=== PATIENT | female | born 1930 | race Hispanic/Latino ===

== ENCOUNTER → 2017-10-17 | Outpatient (CLI) | payer MEDICARE | END | disposition home or self-care (01) | LOC: RAH 15:14 | PROVIDERS: ATTEND Internal Medicine Cardiovascular Disease | DX: I48.2 Chronic atrial fibrillation (principal); I10 Essential (primary) hypertension; R60.0 Localized edema | CPT/HCPCS: 93970 ==

== ENCOUNTER → 2017-12-03 | Outpatient (CLI) | payer MEDICARE | END | disposition home or self-care (01) | LOC: SHCH 08:23 | PROVIDERS: ATTEND Internal Medicine Cardiovascular Disease | DX: M79.604 Pain in right leg (principal); R60.9 Edema, unspecified; I10 Essential (primary) hypertension; E78.5 Hyperlipidemia, unspecified; E03.9 Hypothyroidism, unspecified; I25.10 Atherosclerotic heart disease of native coronary artery without angina pectoris | CPT/HCPCS: 93970 ==

== ENCOUNTER → 2018-09-08 | Outpatient (CLI) | payer MEDICARE | END | disposition home or self-care (01) | LOC: RAH 10:54 | PROVIDERS: ATTEND Family Medicine | DX: R42 Dizziness and giddiness (principal); I65.22 Occlusion and stenosis of left carotid artery | CPT/HCPCS: 93880 ==

== ENCOUNTER 2019-12-07 21:11 | Inpatient (IN) | payer MEDICARE ==
[~2019-12-07] VITALS: Ht 152.4 cm; Wt 55.0 kg
[2019-12-07] MEDS ORDERED: CLINDAMYCIN 600 MG/D5% WATER 50 ML IV ONE (21:39)
[2019-12-07] MEDS ORDERED: SODIUM CHLORIDE 0.9% 1000ML 1,000 ML IV ONE (21:40)
[2019-12-07 21:48] LABS: BASOPHILS % (AUTO) 0.7 % (0.0-5.0); EOSINOPHILS % (AUTO) 8.1 % (0.0-8.0); HEMATOCRIT 24.6 % (36-48); LYMPHOCYTES % (AUTO) 18.4 % (21.0-51.0); MEAN CORPUSCULAR HEMOGLOBIN 26.6 pg (27.0-33.0); MEAN CORPUSCULAR HGB CONC 33.7 g/dL (32.0-36.0); MEAN CORPUSCULAR VOLUME 78.8 fL (79-99); MONOCYTES % (AUTO) 8.4 % (3.0-13.0); NEUTROPHILS % (AUTO) 63.7 % (40.0-77.0); PLATELET COUNT (AUTO) 482 K/uL (130-400); RED BLOOD CELL COUNT(AUTO) 3.12 MIL/uL (4.00-5.50); RED CELL DISTRIBUTION WIDTH 14.6 % (11.0-15.5); WHITE BLOOD COUNT (AUTO) 10.2 K/uL (4.8-10.8)
[2019-12-07 22:08] LABS: INR 0.99 (0.85-1.15); PARTIAL THROMBOPLASTIN TIME 26.5 SEC (26.3-35.5); PROTHROMBIN TIME 10.7 SEC (9.6-11.6)
[2019-12-07 22:08] LABS: APPEARANCE,URINE Turbid (CLEAR); BILIRUBIN,URINE Negative (NEGATIVE); COLOR,URINE Yellow (YELLOW); GLUCOSE, URINE (UA) Negative (NEGATIVE); KETONES,URINE Negative (NEGATIVE); LEUKOCYTE ESTERASE ,URINE Large (NEGATIVE); NITRATE,URINE Negative (NEGATIVE); OCCULT BLOOD,URINE Small (NEGATIVE); PH,URINE 7.5 (5.0-8.0); PROTEIN,URINE POS 1+ mg/dL (NEGATIVE)
[2019-12-07] MEDS ORDERED: LEVOFLOXACIN 500 MG/D5W 100 ML 100 ML ONE (22:27)
[2019-12-07 22:28] LABS: ALANINE AMINOTRANSFERASE 69 U/L (12-78); ALBUMIN 2.1 g/dL (3.5-5.0); ASPARTATE AMINOTRANSFERASE 88 U/L (10-37); BILIRUBIN,TOTAL 0.5 mg/dL (0.2-1.0); CARBON DIOXIDE 26 mmol/L (21-32); CREATINE KINASE, TOTAL 109 U/L (21-232); CREATININE 0.7 mg/dL (0.5-1.5); GLOMERULAR FILTR. RATE CALC 84 mL/min (>60); GLUCOSE,RANDOM 114 mg/dL (70-105); MYOGLOBIN 63 ng/mL (10-92); POTASSIUM 5.1 mmol/L (3.5-5.1); SODIUM SERUM 116 mmol/L (136-145); TOTAL PROTEIN, SERUM 6.2 g/dL (6.0-8.3); TROPONIN I < 0.04 ng/mL (0.00-0.06); UREA NITROGEN, BLOOD 31 mg/dL (7-18)
[2019-12-07 22:30] LABS: CHLORIDE 85 mmol/L (101-111)
[2019-12-07 22:35] LABS: BACTERIA,URINE Many /HPF (None Seen); WBC,URINE TNTC /HPF (0-1)
[2019-12-07] MEDS ORDERED: IOHEXOL-350 75 ML VIAL IV ONE (22:46)
[2019-12-08] MEDS: SODIUM CHLORIDE 0.9% 1000ML 1,000 ML IV SCH ×3 (00:08→18:03)
[2019-12-08] MEDS ORDERED: HYDRALAZINE HCL 20 MG/ML VIAL IV PRN (00:30)
[2019-12-08] MEDS ORDERED: ACETAMINOPHEN 650 MG SUPPOSITORY RC PRN (00:30)
[2019-12-08] MEDS ORDERED: ONDANSETRON HCL 4 MG/2 ML VIAL IVP PRN (00:30)
[2019-12-08] MEDS: LEVOFLOXACIN 500 MG/D5W 100 ML 100 ML IV SCH (01:00)
[2019-12-08] MEDS ORDERED: MORPHINE SULFATE 2 MG/ML 1ML SYG IVP PRN (01:15)
[2019-12-08] MEDS ORDERED: CLINDAMYCIN 600 MG/D5% WATER 50 ML IV ONE ×2 (03:55→08:53)
[2019-12-08 04:37] LABS: BASOPHILS % (AUTO) 0.5 % (0.0-5.0); EOSINOPHILS % (AUTO) 8.6 % (0.0-8.0); HEMATOCRIT 23.1 % (36-48); MEAN CORPUSCULAR HGB CONC 34.2 g/dL (32.0-36.0); MEAN CORPUSCULAR VOLUME 78.8 fL (79-99); NEUTROPHILS % (AUTO) 69.3 % (40.0-77.0); PLATELET COUNT (AUTO) 445 K/uL (130-400); RED BLOOD CELL COUNT(AUTO) 2.93 MIL/uL (4.00-5.50); RED CELL DISTRIBUTION WIDTH 14.5 % (11.0-15.5); WHITE BLOOD COUNT (AUTO) 8.9 K/uL (4.8-10.8)
[2019-12-08] MEDS ORDERED: ZOSYN 3.375GM+NS 50ML 50 ML IV SCH (05:00)
[2019-12-08 05:15] LABS: CREATININE 0.7 mg/dL (0.5-1.5); MAGNESIUM 1.8 mg/dL (1.80-2.40); POTASSIUM 4.1 mmol/L (3.5-5.1)
[2019-12-08] MEDS: CLINDAMYCIN 600 MG/D5% WATER 50 ML IV SCH ×5 (06:00→23:18)
[2019-12-08] MEDS ORDERED: FAMOTIDINE/PF 20 MG/2 ML VIAL IV ONE (08:53)
[2019-12-08] MEDS: FAMOTIDINE/PF 20 MG/2 ML VIAL IV SCH ×2 (09:00→19:54)
[2019-12-08 13:00] VITALS: BP 140/73
--- NOTE | 2019-12-08 13:00 | NUR ---
RECEIVED PT ADMISSION FROM ED, PT'S DAUGHTER IS WITH HER TO ASSIST WITH HER CARE; PT'S HAS WOUNDS ON SACRUM, RIGHT HIP AND BOTH FEET. I HAVE CHANGED THE DRESSING TO SACRUM AND TAKEN PICTURES OF ALL THE WOUNDS. I HAVE ORIENTED DAUGHTER TO ROOM AND HOW TO USE THE CALL LIGHT SYSTEM; PT IS NON VERBAL AND NOT ORIENTED, HER DAUGHTER DOES TOTAL CARE OF HER AT HOME; I WILL ASK MAINTENANCE TECHNICIAN 2ND SHIFT IF DAUGHTER CAN STAY.
--- NOTE | 2019-12-08 14:15 | NUR ---
CM NOTE/IA UNABLE TO MEET WITH PATIENT IN ROOM, NEXT OF KIN CALLED, AMANDA MARTEL. PER DAUGHTER, PATIENT LIVES WITH HER AND SON, TOTAL DEPENDENT WITH ADLS, HAS [facility] HOME WHICH PROVIDER PT/OT/ST TWICE PER WEEK X3 WEEKS AND WOUND CARE TO SACRUM WOUND, HAS USE OF WC BUT IS BEDRIDDEN, USES EMS FOR TRANSPORT [facility] [place]. PER DAUGHTERS REQUEST, WISHES FOR PATIENT TO BE DNR, REPORT TO BE GIVEN TO PRIMARY NURSE AND PRIMARY ROSSANA SMALLWOOD RN. Addendum: 12/09/19 at 0924 by MATT MARTEL RN CM Amended: Links added.
--- NOTE | 2019-12-08 14:49 | NUR ---
RENAE OWEN Pt LETHARGIC AND NOT ABLE TO PARTICIPATE IN P.O. AT THIS TIME. Pt WITH PEG TUBE IN PLACE. PER DAUGHTER AT BEDSIDE, Pt WAS PARTICIPATING IN THERAPEUTIC TRIALS OF PUREED WITH HOME HEALTH AIRFIELD ENGINEER OFFICER. NO FOOD OR LIQUIDS PRESENTED DUE TO Pt LETHARGIC; HIGH RISK FOR ASPIRATION. EVALUATION TO BE RE-ATTEMPTED TOMORROW. AIRFIELD ENGINEER OFFICER COORDINATED WITH NURSE IRAHETA IN Addendum: 12/08/19 at 1451 by ASHLEE CARTER, [facility] Amended: Links added.
[2019-12-08] MEDS ORDERED: FOLI0.4T2 PO (14:51)
[2019-12-08] MEDS ORDERED: ATOR40TA71 PO (14:51)
[2019-12-08] MEDS ORDERED: CETI10TA86 PO (14:51)
[2019-12-08] MEDS ORDERED: AMLO5TAB9 PO (14:51)
[2019-12-08] MEDS ORDERED: FOLI1TAB61 PO (14:51)
[2019-12-08] MEDS ORDERED: ALLO100T PO (14:51)
[2019-12-08] MEDS ORDERED: LEVO75TA10 PO (14:51)
[2019-12-08] MEDS ORDERED: FE F1CAP8 PO (14:53)
[2019-12-08 16:00] VITALS: BP 132/59
[2019-12-08 17:06] LABS: ABG BASE EXCESS 0.4 mmol/L (-2.0-3.0); ABG HCO3 21.8 mmol/L (21.0-28.0); ABG OXYGEN SATURATION 96.6 % (95.0-99.0); ABG PCO2 27 mmHg (32-45)
--- NOTE | 2019-12-08 17:16 | NUR ---
IN REGARDS TO GENERAL SURGERY CONSULT, I CALLED DR PEREZ AND WAS INFORMED HE IS NOT SHIP LABORER TODAY, I WAS TOLD BY ANALYST GEOCHEMICAL PROSPECTING THAT THERE IS NO GENERAL SURGEON SHIP LABORER TILL FRIDAY; I INFORMED EMMA WESLEY FOR BENCHMARK THIS AND SHE STATED TO THEN FOLLOW WOUND CARE RECOMENDATIONS TILL SURGEON RECOMENDATIONS AVAILABLE; I HAVE ORDERED A WOUND CARE CENTER CONSULT.
[2019-12-08 21:36] VITALS: BP 133/78
[2019-12-08 23:47] VITALS: BP 135/68
[2019-12-09] MEDS: LEVOFLOXACIN 500 MG/D5W 100 ML 100 ML IV SCH (01:26)
[2019-12-09 04:06] LABS: BASOPHILS % (AUTO) 0.7 % (0.0-5.0); EOSINOPHILS % (AUTO) 7.6 % (0.0-8.0); HEMATOCRIT 23.7 % (36-48); MEAN CORPUSCULAR HEMOGLOBIN 26.6 pg (27.0-33.0); MEAN CORPUSCULAR HGB CONC 32.9 g/dL (32.0-36.0); MEAN CORPUSCULAR VOLUME 80.9 fL (79-99); MONOCYTES % (AUTO) 9.2 % (3.0-13.0); NEUTROPHILS % (AUTO) 66.6 % (40.0-77.0); PLATELET COUNT (AUTO) 438 K/uL (130-400); RED BLOOD CELL COUNT(AUTO) 2.93 MIL/uL (4.00-5.50); RED CELL DISTRIBUTION WIDTH 14.7 % (11.0-15.5); WHITE BLOOD COUNT (AUTO) 7.5 K/uL (4.8-10.8)
[2019-12-09 04:12] VITALS: BP 103/52
[2019-12-09 04:20] LABS: BILIRUBIN,TOTAL 0.3 mg/dL (0.2-1.0); CREATININE 0.7 mg/dL (0.5-1.5); MAGNESIUM 2.3 mg/dL (1.80-2.40); PHOSPHORUS 3.2 mg/dL (2.5-4.9); POTASSIUM 3.4 mmol/L (3.5-5.1); TOTAL PROTEIN, SERUM 5.8 g/dL (6.0-8.3)
[2019-12-09] MEDS: CLINDAMYCIN 600 MG/D5% WATER 50 ML IV SCH ×2 (05:13→12:45)
[2019-12-09] MEDS: SODIUM CHLORIDE 0.9% 1000ML 1,000 ML IV SCH ×2 (05:13→17:38)
[2019-12-09 08:54] VITALS: BP 126/46
--- NOTE | 2019-12-09 10:33 | NUR ---
CALLED TO DAUGHTER JOHN PAUL JOSEPH ANSWER MAILBOX FULL ,TO ASK ON PATIENTS HGT ? PENDING FOLLOW UP
[2019-12-09] MEDS: FAMOTIDINE/PF 20 MG/2 ML VIAL IV SCH ×2 (10:49→21:08)
--- NOTE | 2019-12-09 11:19 | NUR ---
RD NOTIFICATION - TUBE FEEDING Recommend continuous Pivot 1.5 @40mls/hr tube feeding as medically feasible. Recommend flushes at 150ml q6 Bolus tube feedings provided as Bolus tube feeding diet order in place. (Bolus Recs: 4 cans Pivot 1.5 per day. Schedule [6AM - 1can, 10AM - 1 can, 2PM - 1 can, 6PM - 1can] Flush: 80-100mls before and after each feeding). Recommendations faxed to . RN notified. RD to continue to monitor. Please notify as additional nutrition concerns arise. Thank you. Addendum: 12/09/19 at [address] Amended: Links added.
--- NOTE | 2019-12-09 12:00 | NUR ---
COGNITIVE-LINGUISTIC EVALUATION. 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 EVALUATION: Pt IS AAOX1 AT THIS TIME. RESPONDS TO NAME. Pt WITH MINIMAL VERBAL OUTPUT. Pt STATED NAME AND PROVIDED GREETING APPROPRIATELY. Pt FOLLOWED SIMPLE 1-STEP COMMANDS. Pt NOT ABLE TO RESPOND TO OPEN ENDED QUESTIONS. Pt DID NOT LABEL COMMON OBJECTS OR RESPOND TO YES/NO QUESTIONS CONSISTENTLY. SKILLED SPEECH THERAPY IS RECOMMENDED FOR AFOREMENTIONED WEAKNESS. PER DAUGHTER AMANDA, Pt WAS PARTICIPATING IN SPEECH THERAPY WITH HOME HEALTH. RECOMMENDATIONS: 1. SKILLED SPEECH THERAPY 3-5XWK TARGETING EXPRESSIVE LANGUAGE SKILLS. LTG#1: Pt WILL INCREASE EXPRESSIVE LANGUAGE SKILLS TO EXPRESS WANTS AND NEEDS INDEPENDENTLY. STG#1: Pt WILL LABEL COMMON OBJECTS WITH 80% ACCURACY. STG#2: Pt WILL ANSWER SIMPLE WH QUESTIONS IN 2-3 WORD UTTERANCES WITH 80% ACCURACY. STG#3: Pt WILL STATE IDENTIFYING INFORMATION WITH 80% ACCURACY. STG#4: Pt WILL COMPLETE ROTARY NAMING TASKS WITH 80% ACCURACY. STG#5: Pt WILL COMMUNICATE IN PHRASES (2-3 WORD UTTERANCES) IN 8/10 TRIALS. G-CODES SPOKEN LANGUAGE EXPRESSION: [id number] Addendum: 12/09/19 at 1355 by ASHLEE CARTER [facility] Amended: Links added.
--- NOTE | 2019-12-09 12:46 | NUR ---
Talked to daughter - placement discussed DISCUSSED POSS INFECTION IN TAILBONE- AWARE- WILL FOLLOW UP WITH MARIAELENA HERNÁNDEZ [facility] CONSULT DTR WILL DECLINE SNF--WILL REFERRAL TO [facility] IF IV ABX ARE NEEDED. Addendum: 12/09/19 at 1255 by ROSSANA MCCORD RN CM Amended: Links added.
--- NOTE | 2019-12-09 12:59 | NUR ---
DYSPHAGIA EVAL COMPLETED. +S/S OF ASPIRATION. RECOMMEND NPO, LONG-TERM ALTERNATE MEANS OF NUTRITION/HYDRATION; TRIALS WITH CAN DRAGGER ONLY. RECOMMENDATIONS: DYSPHAGIA THERAPY 3-5X WEEK TO INCREASE ORAL MOTOR STRENGTH AND PHARYNGEAL SWALLOW: LTG#1: Pt WILL TOLERATE LEAST RESTRICTIVE DIET TO MEET NUTRITION/HYDRATION WITH NO S/S OF ASPIRATION. LTG#2: SKILLED EDUCATION Pt/FAMILY/STAFF STG#1: Pt WILL PARTICIPATE IN LARYNGEAL ELEVATION/EXCURSION EXERCISES WITH 80% ACCURACY. STG#2: Pt WILL PARTICIPATE IN TONGUE BASE RETRACTION EXERCISES WITH 80% ACCURACY. STG#3: Pt WILL PARTICIPATE IN ORAL MOTOR EXERCISES WITH 80% ACCURACY. STG#4: Pt WILL PARTICIPATE IN THERAPEUTIC TRIALS OF ADVANCED TEXTURES OF PUREED CONSISTENCY WITH NO S/S OF ASPIRATION. STG#5: SKILLED EDUCATION Pt/FAMILY/STAFF. Addendum: 12/09/19 at 1306 by ASHLEE CARTER, [facility] Amended: Links added.
[2019-12-09] MEDS ORDERED: VANCOMYCIN PROTOCOL PER PHARMACY IV SCH (13:30)
[2019-12-09 13:32] VITALS: BP 112/54
--- NOTE | 2019-12-09 13:37 | NUR ---
[facility] CONSULT PATIENT ASSESSED REQUESTED: [facility] RECOMMENDATIONS SUBMITTED AND REPORT GIVEN TO PATIENT'S NURSE. Addendum: 12/09/19 at 1340 by BELLO RUBALCAVA LVN Amended: Links added.
[2019-12-09] MEDS ORDERED: VANCOMYCIN 750MG + NS 250 ML IV SCH ×2 (16:00)
[2019-12-09] MEDS ORDERED: HONEY 1 APPL/ML TUBE TP SCH (16:30)
[2019-12-09 16:41] VITALS: BP 137/83
[2019-12-09] MEDS: MEROPENEM 1 GM VIAL IVP SCH ×2 (17:38→21:08)
[2019-12-09 20:25] VITALS: BP 140/82
[2019-12-10] VITALS (7 sets, daily range): BP systolic 128–155; BP diastolic 56–90
[2019-12-10] MEDS: SODIUM CHLORIDE 0.9% 1000ML 1,000 ML IV SCH ×3 (02:45→21:52)
[2019-12-10 04:50] LABS: HEMATOCRIT 24.3 % (36-48); MEAN CORPUSCULAR HEMOGLOBIN 27.2 pg (27.0-33.0); MEAN CORPUSCULAR HGB CONC 33.3 g/dL (32.0-36.0); MEAN CORPUSCULAR VOLUME 81.5 fL (79-99); RED BLOOD CELL COUNT(AUTO) 2.98 MIL/uL (4.00-5.50); RED CELL DISTRIBUTION WIDTH 15.4 % (11.0-15.5); WHITE BLOOD COUNT (AUTO) 8.6 K/uL (4.8-10.8)
[2019-12-10 05:10] LABS: ALBUMIN 1.9 g/dL (3.5-5.0); BILIRUBIN,TOTAL 0.3 mg/dL (0.2-1.0); CREATININE 0.8 mg/dL (0.5-1.5); MAGNESIUM 1.8 mg/dL (1.80-2.40); PHOSPHORUS 3.1 mg/dL (2.5-4.9); POTASSIUM 3.1 mmol/L (3.5-5.1); TOTAL PROTEIN, SERUM 5.9 g/dL (6.0-8.3)
[2019-12-10] MEDS: MEROPENEM 1 GM VIAL IVP SCH ×3 (05:10→21:52)
--- NOTE | 2019-12-10 05:38 | NUR ---
Patient continued on tube feeding, tolerated 25 ml/hr, increased by 5 ml to 30 ml per order. AM care provided. Patient turned and repositioned Q2 hours. HOB elevated 90 degrees. No new variance at this time. Following POC.
[2019-12-10] MEDS: FAMOTIDINE/PF 20 MG/2 ML VIAL IV SCH ×2 (08:32→20:16)
[2019-12-10] MEDS: VANCOMYCIN 500MG+NS 100ML 100 ML IV SCH (08:33)
--- NOTE | 2019-12-10 17:00 | NUR ---
REFERRAL TO [facility]. SONIA OBTAINED ON 12/08 FROM DENNIS PATEL
[2019-12-10] MEDS: HONEY 1 APPL/ML TUBE TP SCH (19:26)
--- NOTE | 2019-12-10 20:00 | NUR ---
assessment patient non verbal, peg with positive placement , continue with pivot feeding at 40cc/hr goal reached, dressing coccyx d/i, turn q 2 hours, f/c to gravity drainage, ivf infusing well to left wrist
--- NOTE | 2019-12-11 | NUR ---
peg peg residual less than 5, continue with present tube feedings, free water 150cc
[2019-12-11 04:01] VITALS: BP 132/81
--- NOTE | 2019-12-11 04:30 | NUR ---
HYGIENE/WOUND PATIENT GIVEN BED BATH, TOLERATED WELL, LEFT HEEL DRY ESCHAR , PAINT WITH BETADINE, DAB DRY, APPLY ALLEVYN PATCH, CHANGED DRESSING SACRAL WOUND, OPEN DECUBITUS, NO DRAINAGE NOTED, TUNNELING NOTED, 4X4 DRESSING IMPREGNATED WITH MEDIHONEY PACKED IN WOUND, COVER WITH ALLEVYN PATCH
[2019-12-11] MEDS: MEROPENEM 1 GM VIAL IVP SCH (05:15)
[2019-12-11] MEDS: SODIUM CHLORIDE 0.9% 1000ML 1,000 ML IV SCH ×2 (05:20→18:08)
--- NOTE | 2019-12-11 05:59 | NUR ---
peg peg residual zero, continue with pivot at 40cc/hr , water bolus 150 cc
[2019-12-11 08:00] VITALS: BP 143/59
[2019-12-11 08:34] LABS: HEMATOCRIT 24.9 % (36-48); MEAN CORPUSCULAR HEMOGLOBIN 26.8 pg (27.0-33.0); MEAN CORPUSCULAR HGB CONC 32.9 g/dL (32.0-36.0); MEAN CORPUSCULAR VOLUME 81.4 fL (79-99); RED BLOOD CELL COUNT(AUTO) 3.06 MIL/uL (4.00-5.50); RED CELL DISTRIBUTION WIDTH 15.9 % (11.0-15.5); WHITE BLOOD COUNT (AUTO) 10.5 K/uL (4.8-10.8)
[2019-12-11 08:47] LABS: ALBUMIN 1.9 g/dL (3.5-5.0); BILIRUBIN,TOTAL 0.4 mg/dL (0.2-1.0); CREATININE 0.7 mg/dL (0.5-1.5); POTASSIUM 3.8 mmol/L (3.5-5.1); TOTAL PROTEIN, SERUM 5.7 g/dL (6.0-8.3)
[2019-12-11] MEDS: VANCOMYCIN 500MG+NS 100ML 100 ML IV SCH ×2 (09:00→20:05)
--- NOTE | 2019-12-11 09:13 | NUR ---
[facility] Call received this am from Dianne Rutledge. She mentions that pt has been accepted for admission to their facility when medically cleared for discharge. MOT/COVID-19 assessment forms flagged in chart for Md signature. CN updated.
[2019-12-11] MEDS: FAMOTIDINE/PF 20 MG/2 ML VIAL IV SCH ×2 (10:29→20:04)
[2019-12-11 11:00] VITALS: BP 136/67
[2019-12-11] MEDS: CEFTRIAXONE SODIUM 1 GM IVP SCH (13:15)
[2019-12-11 16:00] VITALS: BP 140/80
[2019-12-11] MEDS: HONEY 1 APPL/ML TUBE TP SCH (19:24)
[2019-12-11 20:00] VITALS: BP 146/73
--- NOTE | 2019-12-11 21:10 | NUR ---
family update spoke to daughter gumaro robbins via phone on update on patient status, continue with ivf as ordered, peg with positive placement, residual less than 5 cc, continue with present tube feedings , turn q 2 hours
[2019-12-11 23:35] VITALS: BP 144/98
--- NOTE | 2019-12-12 | NUR ---
PEG PEG RESIDUAL ZERO , FLUSH WITH WATER 150 CC, CONTINUE WITH PRESENT TUBE FEEDING , TURN Q 2 HOURS
[2019-12-12 04:00] VITALS: BP 147/69
[2019-12-12] MEDS: SODIUM CHLORIDE 0.9% 1000ML 1,000 ML IV SCH ×3 (04:00→23:10)
[2019-12-12 05:10] LABS: BASOPHILS % (AUTO) 0.6 % (0.0-5.0); EOSINOPHILS % (AUTO) 11.9 % (0.0-8.0); HEMATOCRIT 24.2 % (36-48); LYMPHOCYTES % (AUTO) 17.4 % (21.0-51.0); MEAN CORPUSCULAR HEMOGLOBIN 26.4 pg (27.0-33.0); MEAN CORPUSCULAR HGB CONC 32.2 g/dL (32.0-36.0); MEAN CORPUSCULAR VOLUME 81.8 fL (79-99); MONOCYTES % (AUTO) 8.3 % (3.0-13.0); NEUTROPHILS % (AUTO) 61.3 % (40.0-77.0); PLATELET COUNT (AUTO) 437 K/uL (130-400); RED BLOOD CELL COUNT(AUTO) 2.96 MIL/uL (4.00-5.50); RED CELL DISTRIBUTION WIDTH 16.3 % (11.0-15.5); WHITE BLOOD COUNT (AUTO) 10.1 K/uL (4.8-10.8)
--- NOTE | 2019-12-12 06:00 | NUR ---
WOUND/PEG PEG RESIDUAL ZERO, CONTINUE WITH PRESENT TUBE FEEDINGS, CHANGED DRESSING SACRAL AREA, WOUND OPEN 2 CM DEEP, NO DRAINAGE NOTED, WOUND APPEARANCE PINK, PACK WOUND WITH 4X4 IMPREGNATED WITH MEDIHONEY AND APPLY ALLEVYN PATCH, CHANGED DRESSING LEFT HEEL, LEFT HEEL WITH DRY NECROTIC ESCHAR, PAINT WITH BETADINE AND APPLY ALLEVYN PATCH, TOLERATED WELL
[2019-12-12 08:00] VITALS: BP 178/84
[2019-12-12] MEDS: FAMOTIDINE/PF 20 MG/2 ML VIAL IV SCH ×2 (10:16→19:37)
[2019-12-12] MEDS: VANCOMYCIN 500MG+NS 100ML 100 ML IV SCH ×2 (10:17→19:37)
[2019-12-12 11:00] VITALS: BP 173/71
[2019-12-12] MEDS: CEFTRIAXONE SODIUM 1 GM IVP SCH (14:59)
[2019-12-12 16:00] VITALS: BP 166/81
--- NOTE | 2019-12-12 18:00 | NUR ---
NOTE PATIENT HAS BEEN REFERRED TO [facility] AND SHE HAS BEEN ACCEPTED. PRIMARY TEAM WAS WAITING ON DR KAUFMAN FOR POSSIBLE DEBRIDEMENT SACRAL WOUND BUT SHE DECIDED YESTERDAY THAT PATIENT DOES NOT NEED SURGERY JUST CONTINUE WITH IV ABX AND WOUND CARE FOR WOUND, BLOOD AND URINE INFECTION. [facility] RE[facility] CALLED AND SHE WILL HAVE ROOM AVAILABLE TOMORROW, THERE IS NO BEDS AVAILABLE TODAY. Vianey MADE AWARE.
[2019-12-12] MEDS: HONEY 1 APPL/ML TUBE TP SCH (19:46)
[2019-12-12 19:55] VITALS: BP 158/82
[2019-12-12 23:56] VITALS: BP 134/73
[2019-12-13 03:40] VITALS: BP 147/62
[2019-12-13 08:29] VITALS: BP 149/78
--- NOTE | 2019-12-13 09:13 | NUR ---
CHART REVIEWED, DISCHARGE EXPECTED TODAY TO [facility] VIA EMS, CM TO SEND CHART UPDATES AND MED REC WHEN COMPLETD, AND ARRANGE EMS. WILL FOLLOW WITH /LINDA/PRIMARY Addendum: 12/13/19 at 0914 by ROSSANA MCCROD RN CM Amended: Links added.
[2019-12-13] MEDS: SODIUM CHLORIDE 0.9% 1000ML 1,000 ML IV SCH (10:08)
[2019-12-13] MEDS: FAMOTIDINE/PF 20 MG/2 ML VIAL IV SCH (10:40)
[2019-12-13] MEDS: VANCOMYCIN 500MG+NS 100ML 100 ML IV SCH (10:40)
[2019-12-13 11:38] VITALS: BP 179/90
[2019-12-13 12:07] VITALS: BP 169/56
--- NOTE | 2019-12-13 14:18 | NUR ---
NO TREATMENT TREATMENT ATTEMPTED. Pt SLEEPING NOT ABLE TO AROUSE AT THIS TIME. WORKERS COMPENSATION DEFENSE ATTORNEY ATTEMPTED STERNAL RUB,SHAKING, TACTILE CUES, Pt DID NOT PARTICIPATE. PER NURSE CUEVA Pt SLEEPY ALL WEEKEND. NO FOOD OR LIQUIDS PROVIDED AT THIS TIME. WORKERS COMPENSATION DEFENSE ATTORNEY WILL CONTINUE TO FOLLOW Pt. Addendum: 12/13/19 at 1420 by ASHLEE CARTER, [address] Amended: Links added.
[2019-12-13] MEDS: CEFTRIAXONE SODIUM 1 GM IVP SCH (16:00)
[2019-12-13 16:55] LABS: CREATININE 0.5 mg/dL (0.5-1.5); POTASSIUM 3.3 mmol/L (3.5-5.1)
[2019-12-13 16:59] VITALS: BP 155/63
[2019-12-13 16:59] LABS: ALBUMIN 2.1 g/dL (3.5-5.0); BILIRUBIN,TOTAL 0.3 mg/dL (0.2-1.0); PHOSPHORUS 2.9 mg/dL (2.5-4.9)
[2019-12-13] MEDS ORDERED: POTASSIUM CHLORIDE 10MEQ/100ML 100 ML IV PRN (18:30)
[2019-12-13] MEDS ORDERED: POTASSIUM CHLORIDE 20 MEQ ERTAB PO PRN (18:30)
[2019-12-13] MEDS ORDERED: LIDOCAINE HCL-MPF 1% 2ML VIAL IV PRN (18:30)
[2019-12-13] MEDS ORDERED: POTASSIUM CHLORIDE 10% ELIXIR 20 MEQ/15 ML UDCUP PO PRN (18:30)
--- NOTE | 2019-12-13 21:15 | NUR ---
discharge EMS HERE TO TRANSPORT PATIENT TO [facility]. PATIENT WITH ALL BELONGINGS AND PAPERWORK TRANSPORTED VIA [facility] BY EMS. DAUGHTER WAS INFORMED OF TRANSPORT BUT WAS UPSET THAT NO DOCTOR EVER TALKED TO HER OF HER MOTHERS CONDITION. DAY SHIFT NURSE GAVE DAUGHTERS PHONE NUMBER TO MD SO HER COULD CONTACT DAUGHTER. DAUGHTER STATES THAT NO DOCTOR HAS TALKED TO HER ONLY NURSES. I TOLD HER I COULD NOT FORCE THE DOCTORS TO CALL HER I COULD ONLY GIVE THEM THE MESSAGE. I DID HOWEVER GIVE THE DAUGHTER THE OFFICE NUMBER OF HER MOTHERS DOCTOR. SHE WAS SATISFIED WITH THAT AND STATED SHE WOULD TRY TO SPEAK TO THE DOCTOR THAT WAY.
[2019-12-14] MEDS ORDERED: AMLODIPINE BESYLATE 5 MG TAB PO SCH (09:00)
== END 2019-12-13 21:10 | DRG 539 ==
LOC: EDH 21:11 → EDHIP 12-08 00:08 → OBSVTOIN 12-08 00:08 → 3BH 12-08 12:27
PROVIDERS: ADMIT Internal Medicine Critical Care Medicine; ATTEND Internal Medicine Critical Care Medicine
DX: M46.28 Osteomyelitis of vertebra, sacral and sacrococcygeal region (principal); L89.154 Pressure ulcer of sacral region, stage 4; E44.0 Moderate protein-calorie malnutrition; E87.1 Hypo-osmolality and hyponatremia; L03.90 Cellulitis, unspecified; I48.20 Chronic atrial fibrillation, unspecified; N39.0 Urinary tract infection, site not specified; G93.40 Encephalopathy, unspecified; L97.429 Non-pressure chronic ulcer of left heel and midfoot with unspecified severity; R47.01 Aphasia; B96.20 Unspecified Escherichia coli [E. coli] as the cause of diseases classified elsewhere; D64.9 Anemia, unspecified; I10 Essential (primary) hypertension; K57.90 Diverticulosis of intestine, part unspecified, without perforation or abscess without bleeding; L89.219 Pressure ulcer of right hip, unspecified stage; L89.629 Pressure ulcer of left heel, unspecified stage; R13.12 Dysphagia, oropharyngeal phase; Z66 Do not resuscitate; M21.371 Foot drop, right foot; M21.372 Foot drop, left foot; F03.90 Unspecified dementia, unspecified severity, without behavioral disturbance, psychotic disturbance, mood disturbance, and anxiety; Z74.01 Bed confinement status; E87.6 Hypokalemia; Z93.1 Gastrostomy status; Z88.0 Allergy status to penicillin; Z91.048 Other nonmedicinal substance allergy status; Z79.899 Other long term (current) drug therapy; Z86.73 Personal history of transient ischemic attack (TIA), and cerebral infarction without residual deficits
CPT/HCPCS: 36415; 36600; 71045; 72193; 80048; 80053; 80202; 81001; 82550; 82803; 83605; 83735; 83874; 84100; 84145; 84484; 85025; 85027; 85610; 85651; 85730; 87040; 87070; 87077; 87088; 87186; 92522; 92610; 93005; 93970; 99291; G0378; J0696; J1956; J2185; J3370; J3490; J7030; J7050; Q9967